=== PATIENT | male | born 1985 | race Caucasian/White ===

== ENCOUNTER 2017-05-26 23:51 | Emergency (ER) | payer MEDICAID ==
--- NOTE | 2017-05-27 00:32 | NUR ---
CALLED FOR TRIAGE X4; NO ANSWER
--- NOTE | 2017-05-27 00:41 | NUR ---
CALLED AGAIN; NO ANSWER
--- NOTE | 2017-05-27 00:57 | NUR ---
CALLED AGAIN; NOT IN [facility]BY OR ANYWHERE IN ER
== END 2017-05-27 00:58 | disposition left against medical advice (07) ==
LOC: ER 23:51
DX: Z53.21 Procedure and treatment not carried out due to patient leaving prior to being seen by health care provider (principal)

== ENCOUNTER 2017-05-27 07:38 | Emergency (ER) | payer MEDICAID ==
[~2017-05-27] VITALS: Ht 182.9 cm; Wt 90.7 kg
[2017-05-27 07:43] VITALS: BP 137/97
== END 2017-05-27 08:11 | disposition home or self-care (01) ==
LOC: ER 07:40
DX: Z00.8 Encounter for other general examination (principal); F41.9 Anxiety disorder, unspecified; I10 Essential (primary) hypertension
CPT/HCPCS: A4606; Z7502; Z7610